=== PATIENT | male | born 1945 | race Caucasian/White ===

== ENCOUNTER 2019-03-18 10:46 | Inpatient (IN) ==
--- NOTE | 2019-03-18 12:09 | PROVIDER DOCUMENTATION ---
This chart was entered by Xi Srinivasan Scribe, acting as scribe for Jie Anton MD. HPI-Syncope/Dizziness - General Chief Complaint: Dizziness Stated Complaint: DIZZY / CAN'T WALK Time Seen by Provider: 03/18/19 11:26 Source: patient, family Allergies/Adverse Reactions: Patient Allergies Allergy/AdvReac Type Severity Reaction Status Date / Time No Known Allergies Allergy Verified 10/03/13 16:21 Home Medications: Home Medication List Medication Instructions Recorded Confirmed Last Taken Type Lidocaine 5% Patch [Lidoderm] 1 each TOP DAILY 08/20/13 05/22/15 05/22/15 History Morphine Sulfate [Morphine Sulfate 30 mg PO TID 08/20/13 05/22/15 05/22/15 History ER] Omeprazole [Prilosec] 20 mg PO DAILY@0700 08/20/13 05/22/15 05/22/15 History Potassium Chloride E.r. [Klor-Con] 80 meq PO TID 08/20/13 05/22/15 05/22/15 Hi story Testosterone [Androgel] 1.25 gm TOP DAILY 08/20/13 05/22/15 05/22/15 History Morphine Sulfate 15 mg PO DIRECTED PRN PRN 09/08/13 05/22/15 05/22/15 History Valacyclovir [Valtrex] 500 mg PO DAILY 09/08/13 05/22/15 05/22/15 History Amoxicillin/Pot Clavulanate 875 mg PO Q12HR #20 tablet 05/22/15 Unknown Rx [Augmentin] Topiramate [Topamax] 25 mg PO HS 05/22/15 05/22/15 05/22/15 History Venlafaxine [Effexor] 175 mg PO DAILY 05/22/15 05/22/15 05/22/15 History - History of Present Illness-Syncope/Dizzy Nature of Presenting Problem: Pt is a 73 yowm with c/o dizziness, headache, vertigo, and inability to walk without help. Pt also states that movement makes symptoms worse and that his " head feels heavy when he moves it". Pt said his PCP Dr. Singh sent him to ED for tests. Pt states symptoms started Monday night and denies hx of symptoms. Pt states he has had no medication changes and no hx of strokes or heart problems. Pt is diabetic, uses insulin, is hard of hearing and has hearing aids. pt is alert and nontoxic in appearance. He went to his PCP today who took blood and advised he was anemic with a Hgb of 10 and he needed to come to the ER for stroke rule out. If witnessed syncope, by whom?: n/a Prior Episodes: reports: no prior history Onset/Duration: reports: abrupt, 2 days ago Timing: reports: still present Symptoms prior to episode: reports: none Context: denies: lost consciousness Loss of Consciousness: no loss of consciousness Location of injury. (If syncope resulted in an injury.): reports: none Current Symptoms: reports: weakness, lightheaded Recently Seen Here or By Another Healthcare Provider: Yes (Dr. Singh) - Dizziness Severity in ED: reports: moderate Dizziness Related Current/Associated Symptoms: reports: weakness, lightheaded, dizzy, headache, cannot walk. denies: syncope Any recent trauma/injury?: reports: none Patient usually:: reports: walks without assistance Review of Systems - Adult - REVIEW OF SYSTEMS - ADULT Constitutional: denies: chills, fever Eyes: reports: no symptoms reported Ears, Nose, Mouth & Throat: reports: no symptoms reported Cardiovascular: denies: chest pain, syncope Respiratory: denies: shortness of breath, wheezing Gastrointestinal: denies: abdominal pain, vomiting Genitourinary: reports: no symptoms reported Musculoskeletal: reports: no symptoms reported Integumentary: reports: no symptoms reported Neurological: reports: dizziness/vertigo, headache/migraines, loss of balance Psychiatric: reports: no symptoms reported Endocrine: reports: no symptoms reported Hematologic/Lymphatic: reports: no symptoms reported Allergic/Immunologic: reports: no symptoms reported All Other Systems: Reviewed and Negative Past History - Adult - PAST MEDICAL HISTORY-ADULT Review of Records: reports: Old Records Reviewed, Nursing Assessment Review, Medications Reviewed, Social history reviewed & non-contributory. Major Childhood Illnesses: reports: denies history Cardiovascular: reports: HTN Respiratory: reports: denies history Gastrointestinal: reports: denies history Obstetrical/Gynecological: reports: denies history Genitourinary: reports: denies history Musculoskeletal: reports: chronic pain (back L4 and L5) Neurological: reports: denies history Psychiatric: reports: anxiety, depression Endocrine/Immune: reports: denies history Other Conditions: reports: denies history - PRIOR SURGERIES/PROCEDURES Surgical/Procedure History: reports: hernia repair, orthopedic (extremity) - IMMUNIZATION STATUS Childhood Immunizations: See Nurse Assessment Flu Vaccine: See Nurse Assessment - FAMILY HISTORY Family History: reviewed, not pertinent - SOCIAL HISTORY Smoking: non-smoker Substance Use: denies Living Situation: alone Physical Exam-General - PHYSICAL EXAM-ADULT Initial Vital Signs Reviewed: Yes - CONSTITUTIONAL General Appearance: appears well, alert, anxious - EYES Eyes: PERRL/EOMI, pink conjunctivae, other (horizontal nystagmus) - HEAD, EARS, NOSE, MOUTH & THROAT HENMT: normocephalic/atraumatic, moist mucous membranes, normal ENT inspection - NECK Neck: non-tender, full range of motion, supple, normal inspection - RESPIRATORY Respiratory: chest non-tender, lungs clear, normal breath sounds, no pleuratic chest pain, no respiratory distress - CARDIOVASCULAR Cardiovascular: normal peripheral pulses, regular rate, rhythm, no edema, no gallop - GASTROINTESTINAL (ABDOMEN) Abdominal Exam: normal bowel sounds, non tender, soft - MUSCULOSKELETAL Back Exam: normal inspection, no CVA tenderness, no vertebral tenderness Extremity: non-tender, normal inspection, other (right sided ataxia) - SKIN Integumentary: normal color, normal turgor, warm/dry - NEUROLOGIC Neurologic: motor weakness (right sided) - PSYCHIATRIC Psych/Mental Status: normal mood/affect, normal thought content, normal thought process, oriented x 3 Progress - PLAN OF CARE/RESULTS Progress/Plan/Lab Results: Vital Signs - 8 hr 03/18/19 11:19 03/18/19 12:30 Temperature 97.8 F Pulse Rate 76 70 Respiratory Rate 16 18 Blood Pressure 154/93 165/92 O2 Sat by Pulse Oximetry 99 98 Laboratory Results - last 24 hr 03/18/19 03/18/19 03/18/19 12:05 12:05 12:05 WBC 11.45 H RBC 4.57 L Hgb 9.6 L Hct 32.5 L MCV 71.1 L MCH 21.0 L MCHC 29.5 L RDW Std Deviation 16.4 H Plt Count 286 MPV 11.6 H Immature Gran % (Auto) 0.9 H Neut % (Auto) 60.8 Lymph % (Auto) 28.3 [place] % (Auto) 5.7 Eos % (Auto) 3.1 Baso % (Auto) 1.2 H Immature Gran # (Auto) 0.10 H Neut # (Auto) 6.97 H Lymph # (Auto) 3.24 [place] # (Auto) 0.65 H Eos # (Auto) 0.35 Baso # (Auto) 0.14 PT INR PTT (Actin FS) Sodium 139 Potassium 4.0 Chloride 100 Carbon Dioxide 24 L Anion Gap 15 BUN 20 Creatinine 0.6 L Estimated GFR/1.73 m2 > 60 BUN/Creatinine Ratio 33 Glucose 133 H Calculated Osmolality 282 Calcium 9.2 Total Bilirubin 0.40 AST 17 ALT 18 Alkaline Phosphatase 82 Troponin T High Sens Total Protein 7.2 Albumin 4.6 Globulin 3.0 Albumin/Globulin Ratio 2.0 TSH 0.70 Free T4 1.04 03/18/19 03/18/19 12:05 12:05 WBC RBC Hgb Hct MCV MCH MCHC RDW Std Deviation Plt Count MPV Immature Gran % (Auto) Neut % (Auto) Lymph % (Auto) [place] % (Auto) Eos % (Auto) Baso % (Auto) Immature Gran # (Auto) Neut # (Auto) Lymph # (Auto) [place] # (Auto) Eos # (Auto) Baso # (Auto) PT 13.0 INR 0.94 PTT (Actin FS) 32.4 Sodium Potassium Chloride Carbon Dioxide Anion Gap BUN Creatinine Estimated GFR/1.73 m2 BUN/Creatinine Ratio Glucose Calculated Osmolality Calcium Total Bilirubin AST ALT Alkaline Phosphatase Troponin T High Sens 14 Total Protein Albumin Globulin Albumin/Globulin Ratio TSH Free T4 Orders Category Date Time Status CHEST-PORTABLE [RAD] Stat Exams 03/18/19 11:[address] HEAD W/O CONTRAST [CT] Stat Exams 03/18/19 11:40 Completed CBC WITH ELECTRONIC DIFF [HEME] Stat Lab 03/18/19 12:05 Completed COMPREHENSIVE METABOLIC PANEL [CHEM] Stat Lab 03/18/19 12:05 Completed FREE T4 Stat Lab 03/18/19 12:05 Completed PT [PROTIME WITH INR] [COAG] Stat Lab 03/18/19 12:05 Completed PTT [COAG] Stat Lab 03/18/19 12:05 Completed TROPONIN T HIGH SENSITIVITY Stat Lab 03/18/19 12:05 Completed TSH Stat Lab 03/18/19 12:05 Completed URINALYSIS W/POSS RFLX CULT [URINALYSIS] Stat Lab 03/18/19 11:40 Uncollected EKG [EKG] Stat Ther 03/18/19 11:40 Ordered Patient with new onset horizontal nystagmus and dizziness. Unable to sit up or ambulate without getting dizzy. NIHSS 1 for difficulty with finger to nose on right limb but limited exam as we were unable to test ROmbergs. Concern for posterior stroke. CT head negative. Patient will need admission for stroke rule out. Spoke to Dr Masters, instructional aide for hosp who accepted patient for admission. Further orders to be placed by their team. Result Diagrams: 03/18/19 12:05 03/18/19 12:05 - XRAY 1 XRAY Study: Chest Impression: See EMR Report (EXAM: CHEST-PORTABLE HISTORY: dizziness TECHNIQUE: Single view COMPARISON: 05/22/2015 FINDINGS: The lungs are well expanded. The heart is not enlarged. The vessels are not distended. There are no infiltrates. No effusion identified. IMPRESSION: Negative exam. Elec tronically signed by Abad Valverde 03/18/2019 12:33 PM 03/18/19 1233 Interpreting Physician: Abad Valverde MD Dictated Date/Time: 03/18/19 1233 cc: Jie Anton MD; Simba Singh MD) - CT/MRI 1 CT Study: Head Impression: See EMR Report (EXAM: CT HEAD W/O CONTRAST HISTORY: dizziness, new nystagmus TECHNIQUE: CT head without intravenous contrast COMPARISON: 08/20/2013 FINDINGS: No parenchymal hemorrhage. No epidural or subdural hematoma. No subarachnoid hemorrhage. No mass identified on this noncontrasted exam. No hydrocephalus. No sinus opacification. IMPRESSION: No hemorrhage. Negative brain CT without contrast. This exam was performed using automated exposure control, adjustment of mA or kV according to patient size, and/or use of iterative reconstruction technique. Electronically signed by Abad Valverde 03/18/2019 12:18 PM 03/18/19 1218 Interpreting Physician: Abad Valverde MD Dictated Date/Time: 03/18/19 1216 cc: Jie Anton MD; Florentino Singh MD) - CONSULTS/PCP/HOSPITALIST Notification #1 *Consult/PCP/Hospitalist*: Dr Masters Time Discussed: 13:13 Consult Disposition: Admit Departure - Departure Date of Disposition Decision: 03/18/19 Time of Disposition Decision: 13:13 DIAGNOSIS: Dizziness, Horizontal nystagmus, Headache Disposition: ADMITTED INPATIENT 09 Certified Medical Emergency: Emergent Condition: Stable Referrals and Follow-Ups: Simba Singh MD [Primary Care Provider] - - Critical Care Note This patient required my direct & personal management of CC.: No Attestation - Physician/ SHARON Attestation Patient care was provided by Advanced Practice Provider:: No The physician spent face to face time with patient:: Yes Advanced Practice Provider documentation review:: Supervising physician onsite and consulted in the evaluation and care of this patient. The physician did have a face to face encounter with the patient. This chart was documented by the indicated scribe, (Xi Srinivasan, Teresita) and accurately reflects the services I performed and decisions made by me, Jie Anton MD, as attested by the provider's signature.
--- NOTE | 2019-03-18 12:21 | Diag Imaging Result Doc PS360 ---
EXAM: CT HEAD W/O CONTRAST HISTORY: dizziness, new nystagmus TECHNIQUE: CT head without intravenous contrast COMPARISON: 08/20/2013 FINDINGS: No parenchymal hemorrhage. No epidural or subdural hematoma. No subarachnoid hemorrhage. No mass identified on this noncontrasted exam. No hydrocephalus. No sinus opacification. IMPRESSION: No hemorrhage. Negative brain CT without contrast. This exam was performed using automated exposure control, adjustment of mA or kV according to patient size, and/or use of iterative reconstruction technique. Electronically signed by Abad Valverde 03/18/2019 12:18 PM
[2019-03-18 12:23] LABS: BASO# 0.14 X1000 (0.0-0.2); BASO% 1.2 % (0.0-0.8); EOS# 0.35 X1000 (0.0-0.7); EOS% 3.1 % (0.0-10.0); HEMATOCRIT 32.5 % (42.0-52.0); HEMOGLOBIN 9.6 g/dL (14.0-18.0); IMM GRAN% 0.9 % (0.0-0.5); LYMPH# 3.24 X1000 (1.2-3.4); LYMPH% 28.3 % (20.5-51.1); MCHC 29.5 g/dL (33-37); MCV 71.1 FL (81-99); MONO# 0.65 X1000 (0.11-0.59); MONO% 5.7 % (1.7-9.3); MPV 11.6 FL (7.4-10.4); NEUT# 6.97 X1000 (1.4-6.5); NEUT% 60.8 % (42.2-75.2); PLT 286 X1000 (130-400); RBC 4.57 XMIL (4.7-6.1); RDW 16.4 % (11.5-14.5); WBC 11.45 X1000 (4.8-10.8)
[2019-03-18 12:27] LABS: INR 0.94
[2019-03-18 12:28] LABS: PTT 32.4 Seconds (22.3-41.8)
--- NOTE | 2019-03-18 12:36 | Diag Imaging Result Doc PS360 ---
EXAM: CHEST-PORTABLE HISTORY: dizziness TECHNIQUE: Single view COMPARISON: 05/22/2015 FINDINGS: The lungs are well expanded. The heart is not enlarged. The vessels are not distended. There are no infiltrates. No effusion identified. IMPRESSION: Negative exam. Electronically signed by Abad Valverde 03/18/2019 12:33 PM
[2019-03-18 12:38] LABS: AGAP 15; ALBUMIN 4.6 g/dL (3.5-5.0); ALKALINE PHOSPHATASE 82 U/L (32-122); BUN 20 mg/dL (8-22); CALCIUM 9.2 mg/dL (8.8-10.2); CHLORIDE 100 mmol/L (98-107); COSMO 282; CREATININE 0.6 mg/dL (0.7-1.2); ESTIMATED GFR > 60; GLUCOSE 133 mg/dL (70-104); GOT 17 U/L (10-34); GPT 18 U/L (10-44); SODIUM 139 mmol/L (136-145); TCO2 24 mmol/L (25-35); TOTAL PROTEIN 7.2 g/dL (6.3-8.3)
[2019-03-18 12:48] LABS: FREE T4 1.04 ng/dL (0.93-1.70); TSH 0.7 uIUmL (0.27-4.20)
[2019-03-18] MEDS ORDERED: TYLENOL PO PRN (15:00)
[2019-03-18] MEDS ORDERED: ZOFRAN IV PRN ×2 (15:00→15:04)
[2019-03-18 15:03] LABS: URINE SOURCE CLEAN CATCH
[2019-03-18 15:04] LABS: BILIRUBIN URINE NEGATIVE (NEGATIVE); BLOOD URINE NEGATIVE (NEGATIVE); COLOR YELLOW; GLUCOSE URINE NEGATIVE (NEGATIVE); KETONE URINE NEGATIVE (NEGATIVE); LEUKOCYTES URINE NEGATIVE (NEGATIVE); NITRITE URINE NEGATIVE (NEGATIVE); PROTEIN URINE TRACE mg/dL (NEGATIVE); SP GRAVITY URINE 1.021; TURBIDITY URINE CLEAR (CLEAR); UROBILINOGEN URINE NORMAL (NORMAL)
[2019-03-18 15:06] LABS: UR EPITHELIAL CELLS <10 /HPF (<10); URINE BACTERIA NEGATIVE /HPF; URINE RBC <10 /HPF (<10); URINE WBC <10 /HPF (<10)
--- NOTE | 2019-03-18 19:43 | HISTORY AND PHYSICAL ---
CHIEF COMPLAINT: Dizziness, headache, difficulty walking time x48 hours. HISTORY OF PRESENT ILLNESS: This is a 73-year-old gentleman who presented to the emergency room complaining of dizziness, headache, vertigo, with inability to walk without help, that started Monday afternoon. He stated that it was of sudden onset, that the first time this happened, it spontaneously resolved. It was not long after that symptoms recurred and they have not left. He does state that symptoms wax and wane in severity, although the dizziness has not subsided. He did have some nausea and attempted to vomit Monday night with the first episode. He has had none since. He states that he is having trouble walking because he really cannot tell which way is up and down due to dizziness. He denied any head injury, any prior episodes similar to this. PAST MEDICAL HISTORY: 1. Diabetes mellitus. 2. Hypertension. 3. Sleep apnea. PAST SURGICAL HISTORY: Back surgeries x5. SOCIAL HISTORY: He denies any alcohol, tobacco, or illicit drug use. ALLERGIES: No known drug allergies. HOME MEDICATIONS: A list will be obtained by the nursing staff and once verified, will review and restart as appropriate. REVIEW OF SYSTEMS: Discussed with patient with pertinent positives as stated in the HPI. He denied any chest pain or palpitations, any shortness of breath, fever, chills, night sweats, any vomiting, diarrhea, constipation, any abdominal pain, any hematuria, dysuria, frequency, urgency. He denied any change in vision or change in hearing. PHYSICAL EXAMINATION: GENERAL: This is a 73-year-old gentleman who is sitting up on the stretcher in the emergency room in no distress. VITAL SIGNS: Blood pressure is 170/80 with a heart rate of 68, respirations are 18, temperature is 98.3 degrees oral, with room air saturations 96% to 98%. EYES: Pupils are equal, round, react to light. EOMs are intact. Sclerae are anicteric. HEENT: Head is normocephalic, atraumatic. Mucous membranes are moist. NECK: Supple with trachea midline. CARDIOVASCULAR: Regular rate and rhythm. S1, S2 appreciated. Peripheral pulses palpable x4 extremities. Calves are nontender bilaterally. PULMONARY: Breath sounds are clear with no increased work of breathing noted. Chest rises and falls symmetrically with respiration. GASTROINTESTINAL: Abdomen is soft, nontender, nondistended, with bowel sounds in all 4 quadrants. GENITOURINARY: No CVA or suprapubic tenderness. NEUROLOGIC: He is alert and oriented. Forehead is spared. He has no facial droop. No tongue or uvula deviation. Equal shoulder shrug. No plantar drift. EXTREMITIES: Muscle strength is 4/5 x4 extremities. Rehab Specialist are equal. [id number] is 3/3, although he does this slowly. Speech is clear. LABORATORY DATA: WBC is 11.4 with hemoglobin 9.6, hematocrit 32.5, platelets of 286,000. Sodium 139, potassium 4, BUN 20, creatinine 0.6 with a glucose of 133. Urinalysis is essentially negative. IMAGING: CT of the head revealed no hemorrhage. Negative brain CT without contrast. Chest x-ray revealed negative exam. ASSESSMENT AND PLAN: 1. Dizziness. 2. Horizontal nystagmus. 3. Headache, resolved. 4. Hypertension. 5. Diabetes mellitus with hyperglycemia. PLAN: 1. The patient will be admitted to the hospital. 2. He will be placed on telemetry. 3. We will order neurologic checks every 4 hours. 4. We will obtain echocardiogram as well as bilateral carotid Dopplers, MRI of the brain without contrast. 5. He will be placed on fall precautions. 6. We will confirm his home medications and continue as appropriate. 7. We will give sips of clear liquids as tolerated. 8. Give permissive hypertension, allowing for a blood pressure of 180/90. 9. For nausea, will use Zofran. 10. Further treatments pending hospital course. Plan was discussed with Dr. Masters. Dictated by ANALI Miller for Casey Masters MD cc: ANALI Miller MD
[2019-03-19] MEDS ORDERED: TYLENOL PO PRN (06:15)
--- NOTE | 2019-03-19 06:35 | HISTORY AND PHYSICAL ---
HISTORY OF PRESENT ILLNESS: Patient presented to the hospital. States he has been dizzy, lightheaded, having difficulty walking. Upon evaluation, he has no focal weakness, but he does have nystagmus. He is awake, alert, oriented. We are going to admit to the hospital, rule out CVA. Does have a history of prostate cancer, chronic pain, hypertension, anxiety, and depression. cc: Casey Masters MD
[2019-03-19] MEDS ORDERED: PRILOSEC PO SCH (07:00)
[2019-03-19 07:14] LABS: BASO# 0.13 X1000 (0.0-0.2); EOS# 0.35 X1000 (0.0-0.7); EOS% 2.8 % (0.0-10.0); HEMATOCRIT 33.8 % (42.0-52.0); IMM GRAN# 0.07 X1000 (0.0-0.04); IMM GRAN% 0.6 % (0.0-0.5); LYMPH# 3.08 X1000 (1.2-3.4); LYMPH% 24.9 % (20.5-51.1); MCH 20.7 PG (27-31); MCHC 29.6 g/dL (33-37); MONO# 0.72 X1000 (0.11-0.59); MONO% 5.8 % (1.7-9.3); MPV 12.1 FL (7.4-10.4); NEUT# 8.04 X1000 (1.4-6.5); NEUT% 64.9 % (42.2-75.2); PLT 312 X1000 (130-400); RBC 4.83 XMIL (4.7-6.1); RDW 16.4 % (11.5-14.5); WBC 12.39 X1000 (4.8-10.8)
[2019-03-19 07:47] LABS: AGAP 14; ALBUMIN 4.6 g/dL (3.5-5.0); ALKALINE PHOSPHATASE 75 U/L (32-122); BUN 15 mg/dL (8-22); CALCIUM 9.7 mg/dL (8.8-10.2); CHLORIDE 102 mmol/L (98-107); COSMO 280; CREATININE 0.6 mg/dL (0.7-1.2); ESTIMATED GFR > 60; GLUCOSE 129 mg/dL (70-104); GOT 18 U/L (10-34); GPT 18 U/L (10-44); POTASSIUM 3.7 mmol/L (3.5-5.1); SODIUM 139 mmol/L (136-145); TCO2 23 mmol/L (25-35); TOTAL PROTEIN 7.1 g/dL (6.3-8.3)
[2019-03-19] MEDS ORDERED: LIDODERM TOP PRN (08:30)
[2019-03-19] MEDS ORDERED: MORPHINE IR PO PRN (08:30)
[2019-03-19] MEDS ORDERED: MOBIC PO PRN (08:30)
[2019-03-19] MEDS ORDERED: PHENERGAN PO PRN (08:30)
[2019-03-19] MEDS ORDERED: LOMOTIL PO PRN (08:33)
[2019-03-19] MEDS ORDERED: LASIX PO SCH (09:00)
[2019-03-19] MEDS ORDERED: ZOVIRAX PO SCH (09:00)
[2019-03-19] MEDS ORDERED: VITAMIN D PO SCH (09:00)
[2019-03-19] MEDS ORDERED: XANAX PO SCH (09:00)
[2019-03-19] MEDS ORDERED: TRICOR PO SCH (09:00)
[2019-03-19] MEDS ORDERED: PRINIVIL PO SCH (09:00)
[2019-03-19] MEDS ORDERED: KLOR-CON PO SCH (09:00)
[2019-03-19] MEDS ORDERED: ZYRTEC PO SCH (09:00)
[2019-03-19] MEDS ORDERED: EFFEXOR XR PO SCH ×2 (09:00→21:00)
--- NOTE | 2019-03-19 09:53 | Vascular Study Report ---
EXAM: Carotid Ultrasound HISTORY: cva/tia, dizzy TECHNIQUE: Carotid Doppler ultrasound COMPARISON: None. FINDINGS: Right: No occlusion or stenosis in the common carotid artery. Minimal plaque in the bulb. Peak systolic velocity in the internal carotid artery is 40 cm/s. The ICA/CCA ratio 0.6. Antegrade vertebral flow. Normal flow in the right common carotid artery. No occlusion or stenosis. Moderate plaque in the bulb. Peak systolic velocity in the internal carotid artery is 85 cm/s. The ICA/CCA ratio is 1.1. Antegrade vertebral flow. IMPRESSION: Mild stenosis within each carotid bulb of less than 50%. This is slightly more prominent on the left. Electronically signed by Abad Valverde 03/19/2019 9:51 AM
[2019-03-19] MEDS: MS CONTIN PO SCH ×2 (10:49→16:01)
[2019-03-19 11:08] LABS: EOS 3 % (1-10); LYMPHS 26 % (21-51); MONO 6 % (1-9); SEGS 65 % (42-75)
[2019-03-19 13:44] VITALS: BP 143/103
--- NOTE | 2019-03-19 14:56 | Diag Imaging Result Doc PS360 ---
EXAM: MRI BRAIN W/O CONTRAST HISTORY: dizziness, nystagmus TECHNIQUE: MRI brain without contrast. Axial, sagittal, and coronal images obtained in multiple sequences. COMPARISON: CT head from 03/18/2019 FINDINGS: No recent infarct. Minimal atrophy. No significant microvascular ischemic changes. No mass or midline shift. No hydrocephalus. No epidural or subdural fluid collection. Normal orbits. No sinus opacification. No air-fluid levels. IMPRESSION: Mild atrophy, otherwise negative exam. Electronically signed by Abad Valverde 03/19/2019 2:54 PM
[2019-03-19] MEDS ORDERED: GLUCOPHAGE PO SCH (17:00)
[2019-03-19] MEDS ORDERED: ZOLOFT PO SCH (21:00)
[2019-03-19] MEDS ORDERED: LIPITOR PO SCH (21:00)
[2019-03-19] MEDS ORDERED: DESYREL PO SCH (21:00)
--- NOTE | 2019-03-20 09:43 | DISCHARGE SUMMARY ---
ADMISSION DATE: 03/18/2019 DISCHARGE DATE: 03/19/2019 ADDENDUM: Patient seen and examined by myself. Full note dictated and discussed with nurse practitioner. The patient presented to the hospital with nystagmus, horizontal. Thankfully, this appears to have improved. He did have some mild anemia with hemoglobin and hematocrit at 9 and 32. This remained stable. CT, MRI, carotids, and echocardiogram all were normal. Therefore, he will be discharged home. He [*] cc: Casey Masters MD
--- NOTE | 2019-03-21 08:50 | ECHO REPORT ---
ORDER DATE: 03/19/2019 MEASUREMENTS: Septal thickness 1.1, left ventricular internal diameter in diastole 5.3, posterior wall thickness 1.0, aortic root 3.5. Left atrium 4.3. SUMMARY: 1. Adequate quality study. 2. Aortic valve is trileaflet and opens normally on 2-dimensional images. The peak gradient across the aortic valve is less than 10 mmHg. Mitral, tricuspid, and pulmonic valves are without evidence of structural abnormality, with trace tricuspid regurgitation. The aortic root is normal in size. 3. Normal left ventricular dimensions demonstrated. The estimated left ejection fraction appears to be at least 70%. No regional wall motion is evident. Left atrium is mildly enlarged. Right atrium and right ventricle are normal size with grossly preserved right ventricular systolic function. 4. No pericardial effusion. 5. Appearance of inferior vena cava suggests normal central venous pressure. cc: MD Milvia Hill CRNP Gregory S. Cheatham, MD
--- NOTE | 2019-03-24 20:54 | DISCHARGE SUMMARY ---
ADMISSION DATE: 03/18/2019 DISCHARGE DATE: 03/19/2019 DISCHARGE DIAGNOSES: 1. Dizziness, improved. 2. Horizontal nystagmus, appears resolved. 3. Headache, resolved. 4. Hypertension, stable. 5. Diabetes with hyperglycemia. 6. Anemia of chronic disease. Hemoglobin and hematocrit of 11 and 32. CONSULTATION: None. PROCEDURES: Enteritis negative. BRIEF HOSPITAL COURSE: The patient is a 73-year-old male who presented to the hospital secondary to nausea and dizziness. He was noted to have horizontal nystagmus while he was in the ER. Thankfully, most of his symptoms have improved. He is able to ambulate. He is eating better. Notes overall he is feeling better. DISPOSITION: Patient will be discharged home. He is instructed to follow up outpatient with his primary care in 1 week to re-evaluate. Discussed to stay off of ladders and high surfaces as he is at risk of falling until his dizziness has resolved. No other changes are made on his diet or activity otherwise. cc: Casey Masters MD
== END 2019-03-19 18:25 | disposition home or self-care (01) | DRG 125 ==
LOC: P.ED 10:46 → P.MEDSURG 15:45
PROVIDERS: ADMIT Family Medicine